=== PATIENT | female | born 1980 | race African-American/Black ===

== ENCOUNTER 2019-05-15 23:24 | Emergency (ER) | payer SELFPAY ==
[~2019-05-15] VITALS: Ht 172.7 cm; Wt 78.0 kg
[2019-05-16 01:45] VITALS: BP 155/84
== END 2019-05-16 01:54 | disposition home or self-care (01) ==
LOC: ER 23:24
DX: L30.9 Dermatitis, unspecified (principal); I10 Essential (primary) hypertension
CPT/HCPCS: 99283